=== PATIENT | male | born 1960 | race Caucasian/White ===

== ENCOUNTER 2016-03-29 12:30 | Inpatient (IN) | payer MEDICAID ==
[2016-02-25 16:33] LABS: % IMMATURE GRANULYOCYTES 0.3 % (0.0-1.1); ABSOLUTE IMMATURE GRANULOCYTES 0.02 10^3/uL (0.00-0.10); ADD DIFF? NO; ADD MORPH? NO; ADD SCAN? NO; ATYPICAL LYMPHOCYTE FLAG 10 (0-99); FRAGMENT RBC FLAG 0 (0-99); HEMATOCRIT 46.1 % (40.0-51.0); HEMOGLOBIN 16.2 g/dL (13.7-17.5); LEFT SHIFT FLG 0 (0-99); LIPEMIA HEMOLYSIS FLAG 90 (0-99); MEAN CELL HEMOGLOBIN 31.2 pg (27.9-34.1); MEAN CELL HEMOGLOBIN CONCENTR. 35.1 g/dL (32.4-36.7); MEAN CELL VOLUME 88.7 fL (81.5-99.8); MEAN PLATELET VOLUME 10.7 fL (8.7-11.7); PLATELET CLUMPS FLAG 0 (0-99); PLATELET COUNT 183 10^3/uL (150-400); RED CELL DISTRIBUTION WIDTH 13.2 % (11.5-15.2)
[~2016-03-29 12:30] MED LIST: ACETAMINOPHEN 325 MG TAB PO ONE; ACETAMINOPHEN 325 MG TAB PO SCH; BACITRACIN 50,000 UNITS/10 ML SYR IRR ONE; BISACODYL 10 MG SUPP PR PRN; CEFAZOLIN 2 GM/DEXTR 100 ML IV ONE; CHLORHEXIDINE GLUC HIBICLENS 118 ML BTL TP ONE; CITRATE DEXTROSE SOLN 500 ML BAG ONE; CYCLOBENZAPRINE 10 MG TAB PO PRN; DIAZEPAM 5 MG TAB PO PRN; DIPHENOXYLATE/ATROPINE LOMOTIL 1 TAB PO PRN; FAMOTIDINE 20 MG TAB PO ONE; LACTULOSE 20 GM/30 ML UDCUP PO PRN; LR 1,000 ML IV SCH; MAGNESIUM HYDROXIDE 30 ML UDCUP PO PRN; METOCLOPRAMIDE 10 MG/2 ML VIAL IVP PRN; ONDANSETRON 4 MG/2 ML VIAL IVP PRN; ONDANSETRON DISINTEGRATING 4 MG TAB PO PRN; PHARMACY PAIN CONSULT 1 EA MISC PRN; POLYETHYLENE GLYCOL 3350 17 GM PKT PO PRN; POLYMYXIN B SULFATE 500,000 UNIT/10 ML SYR IRR ONE; PROMETHAZINE HCL 25 MG SUPPR PR PRN; PROMETHAZINE HCL 25 MG/ML INJ IVP PRN; ROPI/epiNEPH/KETOROLAC/morphINE JOINT COCKTAIL IU ONE; TEMAZEPAM 15 MG CAP PO PRN; ZOLPIDEM TARTRATE 5 MG TAB PO PRN; diphenhydrAMINE 25 MG CAP PO PRN; oxyCODONE IR 5 MG TAB PO PRN; traMADol 50 MG TAB PO PRN
[2016-03-29] MEDS ORDERED: ceFAZolin 2 GM/DEXTROSE 100 ML IV SCH (14:00)
[2016-03-29] MEDS ORDERED: SENNOSIDES/DOCUSATE SODIUM TAB PO SCH (21:00)
[2016-03-29] MEDS ORDERED: ASPIRIN 325 MG TAB PO SCH (21:00)
[2016-03-29] MEDS ORDERED: FAMOTIDINE 20 MG TAB PO SCH (21:00)
[2016-03-30] MEDS ORDERED: lamoTRIgine 100 MG TAB PO SCH (09:00)
[2016-04-26] MEDS ORDERED: ROPI/epiNEPH/KETOROLAC/morphINE JOINT COCKTAIL IU ONE (06:00)
[2016-04-26] MEDS ORDERED: CHLORHEXIDINE GLUC HIBICLENS 118 ML BTL TP ONE (06:00)
[2016-04-26] MEDS ORDERED: CEFAZOLIN 2 GM/DEXTR 100 ML IV ONE (06:00)
[2016-04-26] MEDS ORDERED: FAMOTIDINE 20 MG TAB PO ONE (06:00)
[2016-04-26] MEDS ORDERED: ACETAMINOPHEN 325 MG TAB PO ONE (06:00)
[2016-04-26] MEDS ORDERED: LIDOCAINE 1% 5 ML SDV ONE (06:10)
[2016-04-26] MEDS ORDERED: CITRATE DEXTROSE SOLN 500 ML BAG ONE (06:37)
[2016-04-26] MEDS ORDERED: ceFAZolin 1 GM/5 ML SYR ONE (06:37)
[2016-04-26] MEDS ORDERED: DIAZEPAM 5 MG TAB PO PRN (06:46)
[2016-04-26] MEDS ORDERED: PROMETHAZINE HCL 25 MG SUPPR PR PRN (06:46)
[2016-04-26] MEDS ORDERED: traMADol 50 MG TAB PO PRN (06:46)
[2016-04-26] MEDS ORDERED: MAGNESIUM HYDROXIDE 30 ML UDCUP PO PRN (06:46)
[2016-04-26] MEDS ORDERED: BISACODYL 10 MG SUPP PR PRN (06:46)
[2016-04-26] MEDS ORDERED: TEMAZEPAM 15 MG CAP PO PRN (06:46)
[2016-04-26] MEDS ORDERED: CYCLOBENZAPRINE 10 MG TAB PO PRN (06:46)
[2016-04-26] MEDS ORDERED: METOCLOPRAMIDE 10 MG/2 ML VIAL IVP PRN (06:46)
[2016-04-26] MEDS ORDERED: PHARMACY PAIN CONSULT 1 EA MISC PRN (06:46)
[2016-04-26] MEDS ORDERED: ONDANSETRON DISINTEGRATING 4 MG TAB PO PRN (06:46)
[2016-04-26] MEDS ORDERED: PROMETHAZINE HCL 25 MG/ML INJ IVP PRN (06:46)
[2016-04-26] MEDS ORDERED: POLYETHYLENE GLYCOL 3350 17 GM PKT PO PRN (06:46)
[2016-04-26] MEDS ORDERED: diphenhydrAMINE 25 MG CAP PO PRN (06:46)
[2016-04-26] MEDS ORDERED: ONDANSETRON 4 MG/2 ML VIAL IVP PRN (06:46)
[2016-04-26] MEDS ORDERED: DIPHENOXYLATE/ATROPINE LOMOTIL 1 TAB PO PRN (06:46)
[2016-04-26] MEDS ORDERED: LACTULOSE 20 GM/30 ML UDCUP PO PRN (06:46)
[2016-04-26] MEDS ORDERED: fentaNYL 100 MCG/2 ML INJ ONE (06:55)
[2016-04-26] MEDS ORDERED: PROPOFOL/EMULSION 500 MG/50 ML BOTTLE IV ONE (06:56)
[2016-04-26] MEDS ORDERED: MIDAZOLAM 2 MG/2 ML VIAL ONE ×2 (06:56→07:12)
[2016-04-26] MEDS ORDERED: LR 1,000 ML IV SCH (07:00)
[2016-04-26] MEDS ORDERED: DEXAMETHASONE 4 MG/ML VIAL ONE (07:15)
[2016-04-26] MEDS ORDERED: ONDANSETRON 4 MG/2 ML VIAL ONE (07:15)
[2016-04-26] MEDS ORDERED: ROCURONIUM 50 MG/5 ML VIAL ONE (07:16)
[2016-04-26] MEDS ORDERED: PHENYLEPHRINE HCL 100 MCG/ML SYR ONE (08:10)
[2016-04-26] MEDS ORDERED: SUCCINYLCHOLINE CHLORIDE*ANESTHESIA ONLY*200 MG/10 ML SYR IVP ONE (08:10)
[2016-04-26] MEDS: SENNOSIDES/DOCUSATE SODIUM TAB PO SCH ×2 (10:29→21:10)
[2016-04-26] MEDS: ACETAMINOPHEN 325 MG TAB PO SCH ×3 (11:46→23:01)
[2016-04-26] MEDS: oxyCODONE IR 5 MG TAB PO PRN ×4 (11:51→21:11)
[2016-04-26] MEDS: ceFAZolin 2 GM in D5W 100 ML IV SCH ×2 (13:38→21:10)
[2016-04-26] MEDS ORDERED: ceFAZolin 2 GM/DEXTROSE 100 ML IV SCH (14:00)
[2016-04-26] MEDS ORDERED: ZOLPIDEM TARTRATE 5 MG TAB PO PRN (19:01)
[2016-04-26] MEDS: FAMOTIDINE 20 MG TAB PO SCH (21:10)
[2016-04-26] MEDS: ASPIRIN 325 MG TAB PO SCH (21:12)
[2016-04-27] MEDS: oxyCODONE IR 5 MG TAB PO PRN ×2 (02:42→08:20)
[2016-04-27] MEDS: ACETAMINOPHEN 325 MG TAB PO SCH (06:06)
[2016-04-27 06:25] LABS: HEMATOCRIT 40.2 % (40.0-51.0)
--- NOTE | 2016-04-27 07:27 | PDIAF ---
- Diagnosis Diagnosis: left hip djd Code Status: Full Code - Medication Management Discharge Medications: Medications to Continue on Transfer Fluvoxamine Maleate 100 mg PO BID 02/17/16 [Last Taken 04/26/16] Glucosamine/Chondroitin [Glucosamine/Chondroitin (*)] 1 each PO DAILY 02/17/16 [ Last Taken 04/19/16] Herbals/Supplements -Info Only 1 each PO DAILY 02/17/16 [Last Taken 04/19/16] Multivitamins [Multivitamin (*)] 1 each PO DAILY 02/17/16 [Last Taken 04/19/16] Zolpidem Tartrate [Ambien 5MG (*)] 10 mg PO HS PRN 02/17/16 [Last Taken 04/25/16 ] lamoTRIgine [LamICTAL 100 MG (*)] 200 mg PO DAILY 02/17/16 [Last Taken 04/26/16] Aspirin [Aspirin 325 mg (*)] 325 mg PO DAILY #0 tab 04/27/16 [Last Taken Unknown ] Diazepam [Valium 5 MG (*)] 5 mg PO Q6HRS PRN #40 tab 04/27/16 [Last Taken Unknown] oxyCODONE IR [Oxycodone Ir (*)] 5 - 10 mg PO Q3HRS PRN #90 tab 04/27/16 [Last Taken Unknown] Discharge Medications: Refer to the Discharge Home Medication list for PRN reason. - Orders Services needed: Physical Therapy Diet Recommendation: no restrictions on diet Diet Texture: Regular Texture Diet Activity/Weight Bearing Restrictions: wbat. rom as tolerated. DAILY DRESSING CHANGES. no soaking or immersion. may shower without bandage. f/u at two weeks. seek attn for increasing pain, redness, drainage, or other focal complaint - Follow Up Care Current Providers and Referrals: Rashida Dailey MD [Primary Care Provider] -
--- NOTE | 2016-04-27 07:57 | GDS ---
ADMIT DIAGNOSIS: Left hip degenerative joint disease. DISCHARGE DIAGNOSIS: Left hip degenerative joint disease. PROCEDURE: Left total hip arthroplasty. HISTORY OF PRESENT ILLNESS: The patient is a 56-year-old gentleman, with end-stage arthritis to his left hip. This interferes with his activities of daily living. Clinical and radiographic features are consistent with this. He has failed all attempts at conservative management. I have therefore recommended total hip replacement. He understood the risks, benefits, alternatives, and wished to proceed. Written consent was signed and placed in patient's chart. HOSPITAL COURSE: The patient was admitted to the hospital floor after uncomplicated total hip arthr oplasty. He tolerated the procedure well. He had an OrthoPAT drainage system overnight. Serial he matocrit remained stable. At time of discharge, he is tolerating oral diet. His pain is well contr olled on oral medicines. He is voiding without difficulty. His dressing is clean, dry, and intact. He has intact femoral nerve sensation. No calf swelling or tenderness. Negative Homans bilateral ly. X-rays are stable with no fracture or lucency. DISCHARGE ACTIVITY: Weightbearing as tolerated. Anterior hip precautions. Daily dressing changes. No soaking and/or immersion. May shower without the bandage. Follow up at 2 weeks for repeat evaluation. JIGNA morales for 2 weeks. DISCHARGE MEDICATIONS: Oxycodone 5 mg 1-2 every 3 hours p.r.n. pain, Valium 5 mg q.6 hours p.r.n. s pasm, aspirin 325 mg daily. /[id number]/MODL
[2016-04-27] MEDS: FAMOTIDINE 20 MG TAB PO SCH (08:13)
[2016-04-27] MEDS: SENNOSIDES/DOCUSATE SODIUM TAB PO SCH (08:13)
[2016-04-27] MEDS: ASPIRIN 325 MG TAB PO SCH (08:14)
[2016-04-27 08:43] VITALS: BP 128/81; PULSE 64; RESP 15; TEMP 98.4; O2SAT 94
[2016-04-27] MEDS ORDERED: lamoTRIgine 100 MG TAB PO SCH (09:00)
== END 2016-04-27 12:00 | disposition home or self-care (01) | DRG 470 ==
LOC: F3N 04-26 05:39
PROVIDERS: ADMIT Orthopaedic Surgery; ATTEND Orthopaedic Surgery
PROC: 8E0Y0CZ Robotic Assisted Procedure of Lower Extremity, Open Approach (ICD-10-PCS; principal; 2016-04-26 07:18)
PROC: 0SRB04Z Replacement of Left Hip Joint with Ceramic on Polyethylene Synthetic Substitute, Open Approach (ICD-10-PCS; principal; 2016-04-26 07:18)
DX: M16.12 Unilateral primary osteoarthritis, left hip (principal)
CPT/HCPCS: 97116-GP; 97161-GP; 97165-GO; 97530-GP; J0171; J0330; J0690; J1100; J1885; J2250; J2370; J2405; J2704; J2795; J3010; J7060

== ENCOUNTER → 2016-06-08 | Outpatient (CLI) | payer MEDICAID | LOC: BMCIMAGING 14:58 | PROVIDERS: ATTEND Physician Assistant | DX: Z96.642 Presence of left artificial hip joint (principal) ==

== ENCOUNTER → 2016-08-05 | Outpatient (CLI) | payer MEDICAID | LOC: BMCIMAGING 09:14 | PROVIDERS: ATTEND Physician Assistant | DX: Z47.1 Aftercare following joint replacement surgery (principal); Z96.642 Presence of left artificial hip joint ==

== ENCOUNTER → 2016-11-03 | Outpatient (CLI) | payer MEDICAID | LOC: BMCIMAGING 09:22 | PROVIDERS: ATTEND Physician Assistant | DX: Z47.1 Aftercare following joint replacement surgery (principal); Z96.642 Presence of left artificial hip joint ==

== ENCOUNTER → 2017-05-04 | Outpatient (CLI) | payer MEDICAID | LOC: BMCIMAGING 09:11 | PROVIDERS: ATTEND Physician Assistant | DX: Z47.1 Aftercare following joint replacement surgery (principal); Z96.642 Presence of left artificial hip joint ==